=== PATIENT | female | born 1985 | race Asian ===

== ENCOUNTER → 2025-02-14 14:02 | Outpatient (REF) | payer OTHER, SELFPAY | LOC: RAD 14:02 | PROVIDERS: ATTENDING PHYSICIAN Internal Medicine; FAMILY PHYSICIAN Internal Medicine | DX: R10.9 Unspecified abdominal pain (principal); M25.50 Pain in unspecified joint; M25.60 Stiffness of unspecified joint, not elsewhere classified; R76.89 Other specified abnormal immunological findings in serum | CPT/HCPCS: 73564; 74177; Q9967 ==